=== PATIENT | female | born 1965 ===

== ENCOUNTER 2019-04-20 11:05 | Emergency (ER) | payer OTHER ==
[~2019-04-20] VITALS: Ht 165.1 cm; Wt 99.2 kg
[~2019-04-20 11:05] MED LIST: DOCU-144 PO; FER325 PO; NORE-90 PO
[2019-04-20 11:07] VITALS: BP 125/58; PULSE 69; RESP 18; Ht 165.1 cm; Wt 99.2 kg
--- NOTE | 2019-04-20 13:32 | ERD ---
ER Documentation Chief Complaint Chief Complaint lmp 2 years ago, vaginal bleeding x 2 days HPI 53-year-old female presenting with vaginal bleeding x2 days. Patient states she has not had a. In 2 years has been having very heavy bleeding over the last 2 days. She denies any chest pain or shortness of breath and no pelvic pain. Patient denies other abdominal pain. Medical history is abdominal hernia. 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 Denies tobacco use. Surgical history G4, P4, A0 ROS All systems reviewed and are negative except as per history of present illness. Medications Home Meds Active Scripts Docusate Sodium* (Colace*) 100 Mg Capsule, 100 MG PO TID, #30 CAP Prov:CHRISTIE CHRISTIANSON PA-C 04/20/19 Ferrous Sulfate* (Ferrous Sulfate*) 325 Mg Tabec, 325 MG PO DAILY, #30 TAB Prov:CHRISTIE CHRISTIANSON PA-C 04/20/19 Norethindrone-E.estradiol-Iron (Loestrin Fe 1.5-30 Tablet) 1 Each Tablet, 1 EACH PO DAILY, #28 TAB Prov:CHRISTIE CHRISTIANSON PA-C 04/20/19 Allergies Allergies: Coded Allergies: No Known Allergy (Unverified , 04/20/19) PMhx/Soc History of Surgery: Yes (c section ) Anesthesia Reaction: No Hx Neurological Disorder: No Hx Respiratory Disorders: No Hx Cardiac Disorders: No Hx Psychiatric Problems: No Hx Miscellaneous Medical Probl: Yes (anemia ) Hx Alcohol Use: Yes Hx Substance Use: Yes (meth ) Hx Tobacco Use: No Smoking Status: Former smoker FmHx Family History: No diabetes, No coronary disease, No other Physical Exam Vitals Vital Signs Date Temp Pulse Resp B/P (MAP) Pulse Ox O2 O2 Flow FiO2 Time Delivery Rate 04/20/19 98.1 69 18 125/58 99 11:07 (80) Physical Exam GENERAL: The patient is well-appearing, well-nourished, in no acute distress HEENT: Atraumatic. Conjunctivae are pink. Pupils equal, round, and reactive to light. There is no scleral icterus. Tympanic membranes clear bilaterally. Oropharynx clear. CHEST: Clear to auscultation bilaterally. There are no rales, wheezes or rhonchi. HEART: Regular rate and rhythm. No murmurs, clicks, rubs or gallops. ABDOMEN:Soft, nontender and nondistended. Good bowel sounds. No rebound or guarding. No gross peritonitis. No gross organomegaly or masses. Result Diagram: 04/20/19 1215 04/20/19 1215 Results 24 hrs Laboratory Tests Test 04/20/19 12:15 White Blood Count 6.9 10^3/ul Red Blood Count 3.64 10^6/ul Hemoglobin 10.5 g/dl Hematocrit 31.1 % Mean Corpuscular Volume 85.4 fl Mean Corpuscular Hemoglobin 28.8 pg Mean Corpuscular Hemoglobin Concent 33.8 g/dl Red Cell Distribution Width 20.6 % Platelet Count 186 10^3/UL Mean Platelet Volume 8.5 fl Immature Granulocytes % 0.700 % Neutrophils % 67.5 % Lymphocytes % 24.3 % Monocytes % 5.2 % Eosinophils % 1.9 % Basophils % 0.4 % Nucleated Red Blood Cells % 0.0 /100WBC Immature Granulocytes # 0.050 10^3/ul Neutrophils # 4.6 10^3/ul Lymphocytes # 1.7 10^3/ul Monocytes # 0.4 10^3/ul Eosinophils # 0.1 10^3/ul Basophils # 0.0 10^3/ul Nucleated Red Blood Cells # 0.0 10^3/ul Sodium Level 143 mmol/L Potassium Level 3.8 mmol/L Chloride Level 109 mmol/L Carbon Dioxide Level 28 mmol/L Anion Gap 6 Blood Urea Nitrogen 13 mg/dl Creatinine 0.68 mg/dl Est Glomerular Filtrat Rate mL/min > 60 mL/min Glucose Level 107 mg/dl Calcium Level 9.1 mg/dl Total Bilirubin 1.8 mg/dl Direct Bilirubin 0.00 mg/dl Indirect Bilirubin 1.8 mg/dl Aspartate Amino Transf (AST/SGOT) 25 IU/L Alanine Aminotransferase (ALT/SGPT) 22 IU/L Alkaline Phosphatase 53 IU/L Total Protein 6.8 g/dl Albumin 3.9 g/dl Globulin 2.90 g/dl Albumin/Globulin Ratio 1.34 Lipase 62 U/L Procedures/MDM ER course: Ultrasound was recommended however patient declined. Patient would not give urine. Patient signed out AMA she does not want to continue waiting in the ER. MDM: 53-year-old female presenting with vaginal bleeding. I have low suspicion for hemodynamic instability and patient declines ultrasound at this time. Patient wanted to leave and get her son so she filled out AMA form. I did recommend patient have close follow-up with her PHOTOVOLTAIC TESTING TECHNICIAN as she may be having menopausal breakthrough bleeding should be monitored. I will give supportive medications. Patient is told symptoms change or worsen to return immediately to the ER. All questions answered at discharge. Departure Diagnosis: Primary Impression: Vaginal bleeding Condition: Stable Patient Instructions: Menorrhagia Referrals: PHOTOVOLTAIC TESTING TECHNICIAN [place] [address] [facility] [address] [place] [address]ABUSLEME [facility] [address] [place] [address] [facility] [address] [place] [address] [address] [facility] [address] [facility] [address] [address] [facility] [address] [place] [address] [facility] [address] [place] [address] [facility] [id number] - [address], [facility] [address] [address] JHA, JOE [address] [facility]. [address], [facility] [address] [address] [address] [place], [place] [id number] Additional Instructions: FOLLOW UP WITH YOUR PRIMARY CARE PHYSICIAN TOMORROW.Return to this facility if you are not improving as expected. CHRISTIE CHRISTIANSON PA-C Apr 20, 2019 13:32
== END 2019-04-20 13:34 | disposition left against medical advice (07) ==
LOC: FTE 11:05
DX: N93.9 Abnormal uterine and vaginal bleeding, unspecified (principal); Z87.891 Personal history of nicotine dependence
CPT/HCPCS: 36415; 80053; 83690; 85025; Z7502; 99283